=== PATIENT | female | born 2000 | race Caucasian/White ===

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

== ENCOUNTER 2022-01-18 17:14 | Emergency (ER) | payer OTHER ==
[~2022-01-18] VITALS: Ht 163.8 cm; Wt 84.0 kg
[2022-01-18] VITALS (8 sets, daily range): BP systolic 94–113; BP diastolic 55–79
== END 2022-01-18 19:09 | disposition home or self-care (01) ==
LOC: ED 17:14
DX: O9A.213 Injury, poisoning and certain other consequences of external causes complicating pregnancy, third trimester (principal); S39.91XA Unspecified injury of abdomen, initial encounter; S09.90XA Unspecified injury of head, initial encounter; V49.40XA Driver injured in collision with unspecified motor vehicles in traffic accident, initial encounter; Z3A.29 29 weeks gestation of pregnancy